=== PATIENT | male | born 1980 | race Caucasian/White ===

== ENCOUNTER 2018-11-07 10:32 | Emergency (ER) | payer OTHER ==
[~2018-11-07] VITALS: Ht 177.8 cm; Wt 92.6 kg
[2018-11-07 10:39] VITALS: BP 128/77
[2018-11-07] MEDS ORDERED: proparacaine 0.5% ophthalmic drops 15ml RIGHTEYE ONE (11:10)
[2018-11-07] MEDS ORDERED: ERYT1OIN6 RIGHTEYE (11:16)
--- NOTE | 2018-11-07 11:32 | NUR ---
eye gtt placed. and flushing eye with ns.
== END 2018-11-07 11:59 | disposition home or self-care (01) ==
LOC: ER 10:33
DX: T15.91XA Foreign body on external eye, part unspecified, right eye, initial encounter (principal); S05.01XA Injury of conjunctiva and corneal abrasion without foreign body, right eye, initial encounter; Z88.0 Allergy status to penicillin; W45.8XXA Other foreign body or object entering through skin, initial encounter; Y93.89 Activity, other specified; Y92.89 Other specified places as the place of occurrence of the external cause; Y99.8 Other external cause status
CPT/HCPCS: 99283

== ENCOUNTER 2022-04-17 13:03 | Emergency (ER) | payer SELFPAY ==
[~2022-04-17] VITALS: Ht 177.8 cm; Wt 100.0 kg
[2022-04-17 13:21] VITALS: BP 129/79
[2022-04-17] MEDS ORDERED: HYDROcodone/acetaminophen 10/325mg tab PO ONE (15:50)
== END 2022-04-17 16:25 | disposition home or self-care (01) ==
LOC: ER 13:03
DX: M25.561 Pain in right knee (principal); F17.200 Nicotine dependence, unspecified, uncomplicated; F12.90 Cannabis use, unspecified, uncomplicated; F15.20 Other stimulant dependence, uncomplicated; Z88.0 Allergy status to penicillin
CPT/HCPCS: 73564; 73630; 99284; A6449

== ENCOUNTER 2022-10-23 22:04 | Emergency (ER) | payer SELFPAY ==
[~2022-10-23] VITALS: Ht 177.8 cm; Wt 102.2 kg
[2022-10-23 22:09] VITALS: BP 134/84
[2022-10-23] MEDS ORDERED: HYDROcodone/acetaminophen 10/325mg tab PO ONE (23:05)
[2022-10-23] MEDS ORDERED: clindamycin 150mg capsule PO ONE (23:05)
[2022-10-23] MEDS ORDERED: CLIN300C70 PO (23:19)
[2022-10-23] MEDS ORDERED: IBUP-1984 PO (23:19)
== END 2022-10-23 23:25 | disposition home or self-care (01) ==
LOC: ER 22:04
DX: K04.7 Periapical abscess without sinus (principal); F12.90 Cannabis use, unspecified, uncomplicated; F15.20 Other stimulant dependence, uncomplicated; Z88.0 Allergy status to penicillin
CPT/HCPCS: 99283

== ENCOUNTER 2022-10-27 15:22 | Emergency (ER) | payer OTHER ==
[~2022-10-27] VITALS: Ht 177.8 cm; Wt 100.0 kg
[~2022-10-27 15:22] MED LIST: CLIN300C70 PO; IBUP-1984 PO
[2022-10-27 16:12] VITALS: BP 123/76
[2022-10-27] MEDS ORDERED: IBUP-1986 PO (16:17)
== END 2022-10-27 18:11 | disposition home or self-care (01) ==
LOC: ER 15:22
DX: K04.7 Periapical abscess without sinus (principal); K08.89 Other specified disorders of teeth and supporting structures; F12.90 Cannabis use, unspecified, uncomplicated; F15.90 Other stimulant use, unspecified, uncomplicated; Z88.0 Allergy status to penicillin; Z79.2 Long term (current) use of antibiotics; Z79.899 Other long term (current) drug therapy
CPT/HCPCS: 99281; 99282

== ENCOUNTER 2024-07-28 06:59 | Emergency (ER) | payer MEDICAID, OTHER ==
[~2024-07-28] VITALS: Ht 172.7 cm; Wt 97.2 kg
[~2024-07-28 06:59] MED LIST changes: -CLIN300C70 PO; -IBUP-1984 PO; +IBUP-1986 PO
[2024-07-28 07:01] VITALS: TEMP 98.4
[2024-07-28] MEDS ORDERED: HYDR-3973 PO (07:56)
[2024-07-28] MEDS: amoxicillin 250mg capsule PO ONE (07:57)
[2024-07-28] MEDS: ibuprofen tablet 400 MG TABLET PO ONE (07:58)
[2024-07-28] MEDS ORDERED: AMOX500C2 PO (07:59)
[2024-07-28 08:10] VITALS: BP 124/75; PULSE 92; RESP 14; O2SAT 97
== END 2024-07-28 08:08 | disposition home or self-care (01) ==
LOC: ER 06:59
DX: K02.9 Dental caries, unspecified (principal); K04.7 Periapical abscess without sinus; F15.90 Other stimulant use, unspecified, uncomplicated; F12.90 Cannabis use, unspecified, uncomplicated; Z88.0 Allergy status to penicillin; Z79.1 Long term (current) use of non-steroidal anti-inflammatories (NSAID)
CPT/HCPCS: 99283